=== PATIENT | male | born 1995 | race Caucasian/White ===

== ENCOUNTER 2016-10-28 14:36 | Emergency (ER) | payer BC, MEDICAID ==
[~2016-10-28] VITALS: Ht 190.5 cm; Wt 72.6 kg
[2016-10-28 15:49] LABS: BASOPHIL % 1.3 % (0-2); PLATELET COUNT 239 x10^3mcL (130-400)
[2016-10-28 16:03] LABS: RED CELL DISTRIBUTION WIDTH 14.9 % (11.5-14.5)
[2016-10-28 16:05] LABS: CALCIUM 8.3 mg/dL (8.5-10.1); CARBON DIOXIDE 29.8 mmol/L (21-32); CHLORIDE SERUM 105 mmol/L (98-107); CREATININE SERUM 0.8 mg/dL (0.7-1.3); GFR1 > 60 mL/min; GLUCOSE SERUM 80 mg/dL (74-106); POTASSIUM SERUM 3.8 mmol/L (3.5-5.1); SODIUM SERUM 143 mmol/L (136-145)
[2016-10-28 16:11] LABS: ALBUMIN 3.4 g/dL (3.4-5.0); ALKALINE PHOSPHATASE 69 U/L (46-116); ALT/SGPT 19 U/L (16-63); AST/SGOT 12 U/L (15-37); BILIRUBIN TOTAL 0.31 mg/dL (0.20-1.00); LIPASE 102 IU/L (73-393); TOTAL PROTEIN, SERUM 6.3 g/dL (6.4-8.2)
[2016-10-28 17:06] VITALS: BP 132/92
== END 2016-10-28 17:06 ==
LOC: ED 14:36
PROVIDERS: Emergency Medicine
DX: L03.211 Cellulitis of face (principal); L03.213 Periorbital cellulitis
CPT/HCPCS: J3490; Q9967